=== PATIENT | female | born 1960 | race Caucasian/White ===

== ENCOUNTER 2020-04-05 07:25 | Emergency (ER) | payer BC, OTHER ==
[2020-04-05] MEDS ORDERED: Nitroglycerin 0.4 MG Tab.SL SL ONE (07:47)
[2020-04-05] MEDS ORDERED: Aspirin 81 MG Tab.Chew PO ONE (07:47)
--- NOTE | 2020-04-05 07:57 | EDM.PDOC ---
ED HPI GENERAL MEDICAL PROBLEM - General Chief Complaint: Chest Pain Stated Complaint: CHEST PAIN Time Seen by Provider: 04/05/20 07:49 - History of Present Illness INITIAL COMMENTS - FREE TEXT/NARRATIVE: 59-year-old female presents the emergency room with chest pain. This chest pain started yesterday morning. The patient is stayed fairly active during the last 24 hours. She went for a walk this morning this did not make th e pain any worse but it did not make it any better. The pain is described as substernal radiating into the back of her shoulder and at times down into her left arm as low as the elbow. She does not believe she short of breath however she states sometimes she has a hard time getting air in. Currently the patient is not on any routine medications. She has not taken aspirin today however thought about it but only had extended release at the house. Patient denies any history of coronary artery disease or any other heart problems. She denies anxiety. Family history is positive for father at age 58 from a massive MA and she has 5 brothers all of which have had stents placed by this time. The patient states that she has been under a lot of stress, but does not believe this is brought on by anxiety. Chest Pain Score (Numeric/FACES): 2 - Related Data Allergies Allergy/AdvReac Type Severity Reaction Status Date / Time doxycycline Allergy Severe Rash Verified 04/05/20 07:37 Home Meds: Home Meds . [No Known Home Meds] 04/05/20 [History] Past Medical History - Past Surgical History HEENT Surgical History: Reports: Adenoidectomy, Tonsillectomy Female Surgical History: Reports: Section Social & Family History - Tobacco Use Smoking Status *Q: Never Smoker ED ROS GENERAL - Review of Systems Review Of Systems: See Below Constitutional: Reports: No Symptoms HEENT: Reports: No Symptoms Respiratory: Reports: Other (At times she has a hard time getting air in but does not feel short of breath) Cardiovascular: Reports: Chest Pain, Lightheadedness (She has had a couple episodes where she thought she might get dizzy). Denies: Dyspnea on Exertion, Edema, Palpitations, PND, Syncope Endocrine: Reports: No Symptoms GI/Abdominal: Reports: No Symptoms : Reports: No Symptoms Musculoskeletal: Reports: Back Pain Skin: Reports: No Symptoms Neurological: Reports: No Symptoms Psychiatric: Reports: No Symptoms ED EXAM, GENERAL - Physical Exam Exam: See Below Exam Limited By: No Limitations General Appearance: Alert, No Apparent Distress Head: Atraumatic, Normocephalic Neck: Normal Inspection, Supple, Non-Tender, Full Range of Motion. No: Lymphadenopathy (L), Lymphadenopathy (R), Thyromegaly Respiratory/Chest: No Respiratory Distress, Lungs Clear, Normal Breath Sounds Cardiovascular: Regular Rate, Rhythm, No Edema, No Murmur GI/Abdominal: Normal Bowel Sounds, Soft, Non-Tender Back Exam: Normal Inspection. No: CVA Tenderness (L), CVA Tenderness (R) Extremities: Normal Inspection, No Pedal Edema Neurological: Alert, Oriented, Normal Cognition EKG INTERPRETATION EKG Date: 04/05/20 Rhythm: NSR [place]: Normal P-Wave: Present QRS: Normal ST-T: Other (Non-specific nondiagnostic changes) QT: Normal Comparison: NA - No Prior EKG EKG Interpretation Comments: Abnormal Course - Vital Signs Last Recorded V/S: Last Vital Signs Temp 36.7 C 04/05/20 07:38 Pulse 104 H 04/05/20 07:38 Resp 16 04/05/20 07:38 BP 118/91 H 04/05/20 07:56 Pulse Ox 100 04/05/20 07:38 - Orders/Labs/Meds Orders: Active Orders 24 hr Category Date Time Status EKG Documentation Completion [RC] STAT Care 04/05/20 07:48 Active Lactated Ringers [Ringers, Lactated] 1,000 ml Med 04/05/20 08:00 Active IV ASDIRECTED Medication Orders Lactated Ringer's (Ringers, Lactated) 1,000 mls @ 50 mls/hr IV ASDIRECTED JEAN PAUL Last Admin: 04/05/20 07:56 Dose: 50 mls/hr Documented by: KYM Labs: Laboratory Tests 04/05/20 04/05/20 04/05/20 Range/Units 07:55 07:55 07:55 WBC 9.33 (3.98-10.04) K/mm3 RBC 4.71 (3.98-5.22) M/mm3 Hgb 13.8 (11.2-15.7) gm/dl Hct 42.0 (34.1-44.9) % MCV 89.2 (79.4-94.8) fl MCH 29.3 (25.6-32.2) pg MCHC 32.9 (32.2-35.5) g/dl RDW Std Deviation 41.9 (36.4-46.3) fL Plt Count 272 (182-369) K/mm3 MPV 10.4 (9.4-12.3) fl Neut % (Auto) 79.8 H (34.0-71.1) % Lymph % (Auto) 12.5 L (19.3-51.7) % [place] % (Auto) 6.9 (4.7-12.5) % Eos % (Auto) 0.5 L (0.7-5.8) Baso % (Auto) 0.2 (0.1-1.2) % Neut # (Auto) 7.44 H (1.56-6.13) K/mm3 Lymph # (Auto) 1.17 L (1.18-3.74) K/mm3 [place] # (Auto) 0.64 H (0.24-0.36) K/mm3 Eos # (Auto) 0.05 (0.04-0.36) K/mm3 Baso # (Auto) 0.02 (0.01-0.08) K/mm3 PT 10.8 (9.7-12.0) SECONDS INR 1.01 APTT 25 (22-31) SECONDS D-Dimer, Quantitative (0.19-0.50) mg/L Sodium 144 (136-145) mEq/L Potassium 3.8 (3.5-5.1) mEq/L Chloride 104 (98-107) mEq/L Carbon Dioxide 29 (21-32) mEq/L Anion Gap 14.8 (5-15) BUN 11 (7-18) mg/dL Creatinine 0.7 (0.55-1.02) mg/dL Est Cr Clr Drug Dosing TNP Estimated GFR (MDRD) > 60 (>60) mL/min BUN/Creatinine Ratio 15.7 (14-18) Glucose 107 H (74-106) mg/dL Calcium 9.3 (8.5-10.1) mg/dL Total Bilirubin 0.4 (0.2-1.0) mg/dL AST 20 (15-37) U/L ALT 35 (14-59) U/L Alkaline Phosphatase 46 (46-116) U/L Troponin I < 0.017 (0.00-0.056) ng/mL Total Protein 7.8 (6.4-8.2) g/dl Albumin 3.9 (3.4-5.0) g/dl Globulin 3.9 gm/dL Albumin/Globulin Ratio 1.0 (1-2) 04/05/20 Range/Units 07:55 WBC (3.98-10.04) K/mm3 RBC (3.98-5.22) M/mm3 Hgb (11.2-15.7) gm/dl Hct (34.1-44.9) % MCV (79.4-94.8) fl MCH (25.6-32.2) pg MCHC (32.2-35.5) g/dl RDW Std Deviation (36.4-46.3) fL Plt Count (182-369) K/mm3 MPV (9.4-12.3) fl Neut % (Auto) (34.0-71.1) % Lymph % (Auto) (19.3-51.7) % [place] % (Auto) (4.7-12.5) % Eos % (Auto) (0.7-5.8) Baso % (Auto) (0.1-1.2) % Neut # (Auto) (1.56-6.13) K/mm3 Lymph # (Auto) (1.18-3.74) K/mm3 [place] # (Auto) (0.24-0.36) K/mm3 Eos # (Auto) (0.04-0.36) K/mm3 Baso # (Auto) (0.01-0.08) K/mm3 PT (9.7-12.0) SECONDS INR APTT (22-31) SECONDS D-Dimer, Quantitative 0.33 (0.19-0.50) mg/L Sodium (136-145) mEq/L Potassium (3.5-5.1) mEq/L Chloride (98-107) mEq/L Carbon Dioxide (21-32) mEq/L Anion Gap (5-15) BUN (7-18) mg/dL Creatinine (0.55-1.02) mg/dL Est Cr Clr Drug Dosing Estimated GFR (MDRD) (>60) mL/min BUN/Creatinine Ratio (14-18) Glucose (74-106) mg/dL Calcium (8.5-10.1) mg/dL Total Bilirubin (0.2-1.0) mg/dL AST (15-37) U/L ALT (14-59) U/L Alkaline Phosphatase (46-116) U/L Troponin I (0.00-0.056) ng/mL Total Protein (6.4-8.2) g/dl Albumin (3.4-5.0) g/dl Globulin gm/dL Albumin/Globulin Ratio (1-2) Meds: Medications Generic Name Dose Route Start Last Admin Trade Name Freq PRN Reason Stop Dose Admin Lactated Ringer's 1,000 mls @ 50 mls/hr 04/05/20 08:00 04/05/20 07:56 Ringers, Lactated IV 50 mls/hr ASDIRECTED JEAN PAUL Administration Discontinued Medications Generic Name Dose Route Start Last Admin Trade Name Freq PRN Reason Stop Dose Admin Aspirin 324 mg 04/05/20 07:47 04/05/20 07:56 Aspirin PO 04/05/20 07:48 324 mg ONETIME ONE Administration Nitroglycerin 0.4 mg 04/05/20 07:47 04/05/20 07:56 Nitrostat SL 04/05/20 07:48 0.4 mg ONETIME ONE Administration - Re-Assessments/Exams Free Text/Narrative Re-Assessment/Exam: 04/05/20 08:00 Her pain is about a 3 right now will attempt a single nitro. We will give her 324 mg of chewed aspirin and start LR at TKO. Labs ordered 04/05/20 09:08 The nitro may have helped a little at this time patient is pain-free except she still has some discomfort in her neck and she feels this is muscle skeletal. Laboratory evaluation is unrevealing including a negative d-dimer and troponin her pulse is remained less than 100 after her initial evaluation. I am wondering if a lot of her symptoms could be stress related. Chest x-ray shows no acute cardiopulmonary changes the lateral aspect of her humerus just proximal to midshaft and I did discuss this with radiology and they do not think it is anything of concern the patient has no history of trauma that she can recall there. And she certainly does not have any pain there. At this time the patient would like to go home. We did discuss checking a second troponin. The patient's heart score is 3 one-point for risk factors, her family history one- point for her age and one point for moderately suspicious history. We did discuss the implication of this Departure - Departure Time of Disposition: 09:17 Disposition: Home, Self-Care 01 Clinical Impression: Chest pain, Muscle strain of left upper back Referrals: Wade Ervin MD [Primary Care Provider] - Forms: ED Department Discharge Additional Instructions: Return to the emergency room with any questions problems or worsening symptoms. Start a baby aspirin preferably enteric-coated 81 mg 1 daily. Follow-up with Dr. Bowles this next week for recheck. Discuss a cardiac stress test especially with your family history. Sepsis Event Note (ED) - Evaluation Sepsis Screening Result: No Definite Risk - Focused Exam Vital Signs: Vital Signs Temp Pulse Resp BP BP Pulse Ox 04/05/20 07:56 118/91 H 04/05/20 07:38 36.7 C 104 H 16 140/81 100 - My Orders Last 24 Hours: My Active Orders 04/05/20 07:48 EKG Documentation Completion [RC] STAT 04/05/20 08:00 Lactated Ringers [Ringers, Lactated] 1,000 ml IV ASDIRECTED - Assessment/Plan Last 24 Hours: My Active Orders 04/05/20 07:48 EKG Documentation Completion [RC] STAT 04/05/20 08:00 Lactated Ringers [Ringers, Lactated] 1,000 ml IV ASDIRECTED
[2020-04-05] MEDS ORDERED: Lactated Ringers 1,000 ML IV SCH (08:00)
--- NOTE | 2020-04-05 09:04 | CR ---
Addendum: Minimal sclerotic area seen along the medullary side of the cortex of the humeral shaft on the left side. This has a benign appearance and is most likely incidental if patient has no adjacent symptoms. --- Addendum1 above dictated on [04/05/2020 09:24] by [Herberth Phipps, Srinivas Rodriguez] --- --- Addendum1 above signed on [04/05/2020 09:26] by [Herberth Phipps Hilton J.] --- --- Original report below dictated on [04/05/2020 08:59] by [Herberth Phipps, Srinivas Rodriguez] --- --- Original report below signed on [04/05/2020 09:01] by [Herberth Phipps, Srinivas Rodriguez] --- Chest: Portable view of the chest was obtained. Comparison: Prior chest x-ray of 04/14/12. Heart size and mediastinum are normal. Lungs are clear with no acute parenchymal change. Bony structures are grossly intact. Impression: 1. Nothing acute is seen on frontal chest x-ray. Diagnostic code #1 This report was dictated in MDT --- Addendum1 signed ---
== END 2020-04-05 09:30 | disposition home or self-care (01) ==
LOC: JD.ED 07:25
DX: R07.2 Precordial pain (principal); S29.012A Strain of muscle and tendon of back wall of thorax, initial encounter; Z88.1 Allergy status to other antibiotic agents; X58.XXXA Exposure to other specified factors, initial encounter
CPT/HCPCS: 36415; 71045; 80053; 84484; 85025; 85379; 85610; 85730; 93005; 96360; 99285; A9270; J7120; 93010; 99284

== ENCOUNTER 2025-07-05 04:35 | Emergency (ER) | payer OTHER ==
[2025-07-05] MEDS: Ketorolac 30 MG/ML SDV IM ONE (05:07)
== END 2025-07-05 05:30 | disposition home or self-care (01) ==
LOC: JD.ED 04:35
DX: M75.22 Bicipital tendinitis, left shoulder (principal); Z91.048 Other nonmedicinal substance allergy status; Z88.0 Allergy status to penicillin; Z91.013 Allergy to seafood; Z88.8 Allergy status to other drugs, medicaments and biological substances; Z79.899 Other long term (current) drug therapy
CPT/HCPCS: 73030; 96372; 99283; J1885